=== PATIENT | male | born 1940 | race Caucasian/White ===

== ENCOUNTER → 2016-09-09 | Outpatient (CLI) | payer MEDICARE | END | disposition home or self-care (01) | LOC: CFH 08:36 | PROVIDERS: ATTEND Internal Medicine | DX: S09.90XD Unspecified injury of head, subsequent encounter (principal); J32.0 Chronic maxillary sinusitis; X58.XXXD Exposure to other specified factors, subsequent encounter | CPT/HCPCS: 70450 ==

== ENCOUNTER 2020-12-27 00:38 | Emergency (ER) | payer MEDICARE ==
[~2020-12-27] VITALS: Ht 177.8 cm; Wt 82.3 kg
[2020-12-27 01:19] LABS: BASOPHILS % (AUTO) 1 % (0-1); EOSINOPHILS % (AUTO) 1 % (1-7); LYMPHOCYTES % (AUTO) 23 % (22-44); MEAN CORPUSCULAR HEMOGLOBIN 31.8 pg (27.5-34.5); MEAN CORPUSCULAR HGB CONC 34.2 g/dL (33.2-36.2); MEAN PLATELET VOLUME 9.4 fL (7.4-10.4); MONOCYTES % (AUTO) 5 % (2-9); NEUTROPHILS % (AUTO) 71 % (42-75); PLATELET COUNT 286 x10^3/uL (130-400); RED BLOOD COUNT 5.48 x10^6/uL (4.38-5.82)
[2020-12-27 01:31] LABS: ALANINE AMINOTRANSFERASE 27 U/L (12-78); ALBUMIN 3.5 g/dL (3.4-5.0); ANION GAP 5 mmol/L (5-15); CALCIUM 8.8 mg/dL (8.5-10.1); CHLORIDE 110 mmol/L (98-107)
[2020-12-27 01:34] LABS: ALKALINE PHOSPHATASE 78 U/L (45-117); BILIRUBIN,TOTAL 0.6 mg/dL (0.2-1.0); CREATININE 1.15 mg/dL (0.7-1.3); TOTAL PROTEIN 7.6 g/dL (6.4-8.2); TROPONIN I < 0.015 ng/mL (0.000-0.045)
[2020-12-27 02:04] LABS: MICROSCOPIC INDICATED
--- NOTE | 2020-12-27 02:37 | NUR ---
PT TO CT SCAN AT THIS TIME.
--- NOTE | 2020-12-27 02:50 | NUR ---
STARTED 20G IV IN LEFT CEPHALIC VEIN FOR CT SCAN. SENT PT BACK TO ER WITH IV INTACT.
[2020-12-27] MEDS ORDERED: OMNIPAQUE 350 MG/ML, 100ML BOTTLE ONE (02:54)
--- NOTE | 2020-12-27 04:48 | NUR ---
NO ACUTE DISTRESS. PT WAITING ON CT TO BE READ. PT SLEEPING. WILL CONTINUE TO MONITOR.
[2020-12-27 06:29] VITALS: BP 154/78
== END 2020-12-27 06:31 | disposition home or self-care (01) ==
LOC: ED 05:36
DX: R10.84 Generalized abdominal pain (principal); I10 Essential (primary) hypertension; R94.31 Abnormal electrocardiogram [ECG] [EKG]; Z90.49 Acquired absence of other specified parts of digestive tract
CPT/HCPCS: 36415; 71045; 74177; 80053; 81001; 83605; 84145; 84484; 85025; 87040; 93005; 99285; Q9967